=== PATIENT | female | born 2000 ===

== ENCOUNTER 2018-01-16 07:48 | Emergency (ER) | payer BC ==
[2018-01-16 08:07] VITALS: BP 129/78
[2018-01-16] MEDS ORDERED: Acetaminophen TAB* 325 MG PO ONE (08:42)
[2018-01-16] MEDS ORDERED: Ibuprofen TAB* 600 MG PO ONE (08:43)
--- NOTE | 2018-01-16 08:48 | UC ---
Throat Pain/Nasal Juan HPI - HPI Summary HPI Summary: has had ST for 3 days, took tylenol and ibuprofen yesterday with some relief no cough, no GI symps, - History of Current Complaint Chief Complaint: UCRespiratory Stated Complaint: SORE THROAT Time Seen by Provider: 01/16/18 07:58 Hx Obtained From: Patient Hx Last Menstrual Period: 12/25/17 ?: No Onset/Duration: Gradual Onset Severity: Moderate Pain Intensity: 6 - Allergies/Home Medications Allergies/Adverse Reactions: Allergies Allergy/AdvReac Type Severity Reaction Status Date / Time Penicillins Allergy Rash Verified 01/16/18 08:07 Home Medications: Home Medications Ibuprofen TAB* [Advil TAB*] 400 mg PO Q6H PRN 01/16/18 [History Confirmed ] PMH/Surg Hx/FS Hx/Imm Hx Previously Healthy: Yes - Surgical History Surgical History: Yes Surgery Procedure, Year, and Place: appy - Family History Known Family History: Negative: Hypertension - Social History Occupation: Student Lives: With Family Alcohol Use: None Substance Use Type: None Smoking Status (MU): Never Smoked Tobacco Review of Systems Constitutional: Negative Skin: Negative ENT: Sore Throat Respiratory: Negative Cardiovascular: Negative Musculoskeletal: Negative Neurological: Negative Psychological: Negative Is Patient Immunocompromised?: No All Other Systems Reviewed And Are Negative: Yes Physical Exam Triage Information Reviewed: Yes Appearance: Well-Appearing, No Pain Distress, Well-Nourished Vital Signs: Initial Vital Signs Temp 98.1 F 01/16/18 08:01 Pulse 94 01/16/18 08:01 Resp 16 01/16/18 08:01 BP 129/78 01/16/18 08:01 Pulse Ox 97 01/16/18 08:01 Vital Signs Reviewed: Yes Eye Exam: Normal ENT: Positive: Pharyngeal erythema, TMs normal, Tonsillar exudate Neck: Positive: Enlarged Nodes @ - anterior cervical Respiratory Exam: Normal Cardiovascular Exam: Normal Neurological Exam: Normal Psychological Exam: Normal Skin Exam: Normal Throat Pain/Nasal Course/Dx - Differential Dx/Diagnosis Differential Diagnosis/HQI/PQRI: Influenza, Mononucleosis, Sinusitis, Tonsillitis Provider Diagnoses: URI Discharge - Sign-Out/Discharge Documenting (check all that apply): Patient Departure All imaging exams completed and their final reports reviewed: No Studies - Discharge Plan Condition: Good Disposition: HOME Patient Education Materials: Upper Respiratory Infection (ED) Referrals: No Primary Care Phys,NOPCP [Primary Care Provider] - (see [facility] for recheck 2 days) Additional Instructions: Drink plenty of fluids and rest Use ibuprofen 600mg every 6 hours for fever and pain tylenol 650mg every 4-6 hours as needed for pain and fever Recheck if you feel worse otherwise see [facility] if no better 3 days - Billing Disposition and Condition Condition: GOOD Disposition: Home
== END 2018-01-16 08:58 | disposition home or self-care (01) ==
LOC: UCEAST 07:48
DX: J06.9 Acute upper respiratory infection, unspecified (principal); Z88.0 Allergy status to penicillin
CPT/HCPCS: 87651; 99201; A9270-GY; G0463

== ENCOUNTER 2019-01-19 16:12 | Emergency (ER) | payer BC ==
[2019-01-19 16:41] VITALS: BP 116/75
--- NOTE | 2019-01-19 17:47 | UC ---
Skin Complaint HPI - HPI Summary HPI Summary: 19 yo student with gradual onset of rash beginning on the neck, extending to the breasts and torso. This has been itchy. No associated fever or illness; otherwise feels well. Admittedly very anxious about the appearance of this. No new foods, exposures to products, recent travel. Has been using vaseline and triple antibiotic without relief. - History of Current Complaint Chief Complaint: UCSkin Time Seen by Provider: 01/19/19 17:38 Stated Complaint: SKIN ISSUE Hx Obtained From: Patient Hx Last Menstrual Period: [id number] Onset/Duration: Gradual Onset, Lasting Days - 3-4 Timing: Constant Onset Severity: Mild Current Severity: Moderate Pain Intensity: 6 Location: Diffuse - across torso, more intense on abdomen. Character: Redness Aggravating Factor(s): Clothing, Touch Alleviating Factor(s): Nothing Associated Signs & Symptoms: Positive: Negative - Allergy/Home Medications Allergies/Adverse Reactions: Allergies Allergy/AdvReac Type Severity Reaction Status Date / Time Penicillins Allergy Rash Verified 01/19/19 16:41 PMH/Surg Hx/FS Hx/Imm Hx Previously Healthy: Yes - Surgical History Surgical History: Yes Surgery Procedure, Year, and Place: appy - Family History Known Family History: Positive: Non-Contributory Negative: Hypertension - Social History Occupation: Student Alcohol Use: Weekly Substance Use Type: None Smoking Status (MU): Never Smoked Tobacco Review of Systems All Other Systems Reviewed And Are Negative: Yes Constitutional: Positive: Negative Skin: Positive: Rash Eyes: Positive: Negative ENT: Positive: Negative Respiratory: Positive: Negative Cardiovascular: Positive: Negative Gastrointestinal: Positive: Negative Genitourinary: Positive: Negative Motor: Positive: Negative Neurovascular: Positive: Negative Musculoskeletal: Positive: Negative Neurological: Positive: Negative Psychological: Positive: Anxious Is Patient Immunocompromised?: No Physical Exam Triage Information Reviewed: Yes Appearance: Well-Appearing, Obese Vital Signs: Initial Vital Signs Temp 98.3 F 01/19/19 16:35 Pulse 75 01/19/19 16:35 Resp 16 01/19/19 16:35 BP 116/75 01/19/19 16:35 Pulse Ox 9 01/19/19 16:35 Eye Exam: Normal Eyes: Positive: Conjunctiva Clear ENT: Positive: Pharynx normal, TMs normal Neck: Positive: Supple, Nontender, No Lymphadenopathy Respiratory: Positive: Lungs clear, Normal breath sounds Cardiovascular: Positive: RRR, No Murmur Musculoskeletal Exam: Normal Neurological Exam: Normal Psychological Exam: Normal Skin Exam: Other - numerous polymorphic patches on the neck, trunk, 2 larger patches about 3 x 2 cm on the right and left breasts, with collarette but no central clearing. Course/Dx - Course Course Of Treatment: Rash is most suggestive of pityriasis rosea in presentation and progression. Discussed symptomatic treatment of itching, along with use of benadryl. Advised that these will control symptoms, but will not speed the resolution of the rash. Given that the appearance is not entirely typical, will refer to dermatology for evaluation and confirmation. - Differential Diagnoses - Skin Complaint Differential Diagnoses: Contact Dermatitis, Viral Exanthem, Other - pityriasis rosea - Diagnoses Provider Diagnosis: Pityriasis rosea Discharge ED - Sign-Out/Discharge Documenting (check all that apply): Patient Departure All imaging exams completed and their final reports reviewed: No Studies - Discharge Plan Condition: Good Disposition: HOME Prescriptions: Hydrocortisone 2.5% CREAM(NF) 1 applic TOPICAL BID #120 ml Patient Education Materials: Pityriasis rosea (ED) Referrals: No Primary Care Phys,NOPCP [Primary Care Provider] - Bren Escobar [Medical Doctor] - Additional Instructions: The rash is consistent with pityriasis, and could take up to 6 weeks to resolve. I suggest evaluation by dermatology; please call Dr. Escobar's office tomorrow to arrange this. Use 2.5 % hydrocortisone lotion--this will relieve the itch but will not make the rash go away entirely. You can use an emollient lotion in addition to this, such as cetaphil or cerave. You can use benadryl 25mg up to three times per day, but this will make you drowsy. - Billing Disposition and Condition Condition: GOOD Disposition: Home
== END 2019-01-19 18:16 | disposition home or self-care (01) ==
LOC: UCEAST 16:12
DX: L42 Pityriasis rosea (principal); E66.9 Obesity, unspecified; Z88.0 Allergy status to penicillin
CPT/HCPCS: 99212; G0463